=== PATIENT | male | born 1985 | race Caucasian/White ===

== ENCOUNTER 2017-01-06 09:50 | Emergency (ER) | payer BC, OTHER ==
[~2017-01-06] VITALS: Ht 172.7 cm; Wt 77.1 kg
[2017-01-06 10:23] LABS: *BILIRUBIN,URIN NEGATIVE (NEGATIVE); *BLOOD, URINE NEGATIVE (NEGATIVE); *CLARITY,URINE CLEAR (CLEAR); *COLOR,URINE YELLOW (YELLOW); *KETONES,URINE NEGATIVE (NEGATIVE); *PROTEIN,URINE NEGATIVE (NEGATIVE); *UROBILINOGEN,URINE 0.2 E.U./dl (NORMAL); LEUKOCYTE ESTERASE ,URINE NEGATIVE (NEGATIVE); NITRITE, URINE NEGATIVE (NEGATIVE); UGLUCOSE NEGATIVE (NEGATIVE)
[2017-01-06 10:36] LABS: BACTERIA,URINE FEW /HPF (NONE SEEN); RBC,URINE NONE SEEN /HPF (0-3); SQUAMOUS EPITHELIAL CELL,UR NONE SEEN /HPF (NONE SEEN); WBC,URINE 0-3 /HPF (0-3)
[2017-01-06 10:42] LABS: BASOPHILS % (AUTO) 0.9 % (0.0-2.0); EOSINOPHILS # (AUTO) 0.3 K/uL (0.0-0.7); EOSINOPHILS % (AUTO) 5.8 % (0.0-7.0); HEMATOCRIT 41.1 % (40-50); HEMOGLOBIN 14.6 G/DL (14.0-18.0); LYMPHOCYTES % (AUTO) 38.2 % (20.5-51.5); MEAN CORPUSCULAR HEMOGLOBIN 29.5 UUG (27.0-31.0); MEAN CORPUSCULAR HGB CONC 35 g/dL (32.0-37.0); MEAN CORPUSCULAR VOLUME 83.4 FL (82.0-92.0); MONOCYTES # (AUTO) 0.4 K/UL (0.1-1.30); MONOCYTES % (AUTO) 7.8 % (0.0-11.0); NEUTROPHILS # (AUTO) 2.6 K/UL (1.8-8.9); NEUTROPHILS % (AUTO) 47.3 % (38.5-71.5); PLATELET COUNT (AUTO) 239 K/UL (150-450); RED BLOOD CELL COUNT(AUTO) 4.93 MIL/UL (4.7-6.1); RED CELL DISTRIBUTION WIDTH 11.9 % (11.5-14.5); WHITE BLOOD COUNT (AUTO) 5.3 K/UL (4.0-11.2)
[2017-01-06 10:43] LABS: CALCIUM 9.3 mg/dL (8.5-10.1); CREATININE 1.2 mg/dL (0.6-1.3); POTASSIUM 4.2 mmol/L (3.5-5.1)
[2017-01-06 11:02] LABS: ALBUMIN 4.5 g/dL (3.4-5.0); BILIRUBIN,DIRECT 0.1 mg/dL (0.0-0.2); BILIRUBIN,TOTAL 0.5 mg/dL (0.2-1.0); TOTAL PROTEIN, SERUM 8.2 g/dL (6.4-8.2)
[2017-01-06] MEDS: MAG HYDROX/AL HYDROX/SIMETH 30 ML LIQUID UDC PO ONE (11:02)
[2017-01-06] MEDS: DICYCLOMINE HCL 10 MG/5 ML UDC LIQ PO ONE (11:02)
[2017-01-06] MEDS ORDERED: MAG HYDROX/AL HYDROX/SIMETH 30 ML LIQUID UDC ONE (11:08)
[2017-01-06] MEDS ORDERED: DICYCLOMINE HCL 10 MG/5 ML UDC LIQ ONE ×2 (11:09)
--- NOTE | 2017-01-06 11:11 | NUR ---
mse completed, meds administered, pt d/c'd with copy of ct results, aci/rx x1. pt ambulated w/o diff/took all belongings.
[2017-01-06 11:13] VITALS: BP 122/72
== END 2017-01-06 11:14 | disposition home or self-care (01) ==
LOC: ER 09:50
DX: K21.9 Gastro-esophageal reflux disease without esophagitis (principal)
CPT/HCPCS: 36415; 83690; 85025; A4663

== ENCOUNTER 2017-12-07 15:33 | Emergency (ER) | payer BC, OTHER ==
[~2017-12-07] VITALS: Ht 170.2 cm; Wt 73.5 kg
--- NOTE | 2017-12-07 16:10 | NUR ---
PATIENT WAS SEEN BY MD. ARECHIGA AND FOLLOW UP INSTRUCTIONS GIVEN AND EXPLAINED TO PATIENT WHO STATES SHE UNDERSTANDS ALL INSTRUCTIONS.
== END 2017-12-07 16:21 | disposition home or self-care (01) ==
LOC: ER 15:34
DX: S90.32XA Contusion of left foot, initial encounter (principal); X58.XXXA Exposure to other specified factors, initial encounter; Y93.89 Activity, other specified; Y92.89 Other specified places as the place of occurrence of the external cause; Y99.8 Other external cause status
CPT/HCPCS: 73630; A4663

== ENCOUNTER 2020-01-02 15:17 | Emergency (ER) | payer OTHER ==
[~2020-01-02] VITALS: Ht 170.2 cm; Wt 72.1 kg
--- NOTE | 2020-01-02 15:34 | NUR ---
Patient discharged to home in stable condition. Written and verbal after care instructions given. Patient verbalizes understanding of instructions. Stressed follow up or return to ER for worsening s/s.
== END 2020-01-02 15:36 | disposition home or self-care (01) ==
LOC: ER 15:19
DX: J06.9 Acute upper respiratory infection, unspecified (principal); Z20.828 Contact with and (suspected) exposure to other viral communicable diseases
CPT/HCPCS: 99283; C9803; U0003; A4663

== ENCOUNTER 2020-02-28 15:46 | Emergency (ER) | payer OTHER ==
[~2020-02-28] VITALS: Ht 170.2 cm; Wt 72.6 kg
== END 2020-02-28 16:15 | disposition home or self-care (01) ==
LOC: ER 15:46
DX: R05 Cough (principal); R50.9 Fever, unspecified; J02.9 Acute pharyngitis, unspecified; Z20.828 Contact with and (suspected) exposure to other viral communicable diseases
CPT/HCPCS: 99283; U0003; A4663

== ENCOUNTER 2021-02-25 14:32 | Emergency (ER) | payer BC, OTHER ==
[~2021-02-25] VITALS: Ht 170.2 cm; Wt 76.2 kg
--- NOTE | 2021-02-25 15:05 | NUR ---
at bedside for assessment
[2021-02-25] MEDS ORDERED: ONDANSETRON 4 MG/2 ML VIAL IV ONE (15:15)
[2021-02-25] MEDS ORDERED: IV NORMAL SALINE 1000 ML BAG IV ONE (15:15)
[2021-02-25] MEDS ORDERED: ONDANSETRON 4 MG/2 ML VIAL ONE (15:25)
--- NOTE | 2021-02-25 15:25 | NUR ---
Ultrasond noted atr bedside for US gallbladder
[2021-02-25 15:51] LABS: POTASSIUM 3.8 mmol/L (3.5-5.1)
[2021-02-25 15:57] LABS: BILIRUBIN,DIRECT 0.1 mg/dL (0.0-0.2); BILIRUBIN,TOTAL 0.4 mg/dL (0.2-1.0); TOTAL PROTEIN, SERUM 7.4 g/dL (6.4-8.2)
[2021-02-25] MEDS ORDERED: LIDOCAINE VISCUS 2% 15 ML UDC MM ONE (16:45)
[2021-02-25] MEDS ORDERED: MAG HYDROX/AL HYDROX/SIMETH 30 ML LIQUID UDC PO ONE (16:45)
[2021-02-25] MEDS ORDERED: FAMOTIDINE. 20 MG/2 ML VIAL IV ONE ×2 (16:45→17:00)
[2021-02-25] MEDS ORDERED: FAMO-132 PO (16:49)
[2021-02-25] MEDS ORDERED: ONDA4TAB5 PO (16:49)
[2021-02-25] MEDS ORDERED: LIDOCAINE VISCUS 2% 15 ML UDC ONE (17:00)
[2021-02-25] MEDS ORDERED: MAG HYDROX/AL HYDROX/SIMETH 30 ML LIQUID UDC ONE (17:00)
--- NOTE | 2021-02-25 17:12 | NUR ---
Patient discharged to home in stable condition. no signs of acute distress noted, took belongings. Written and verbal after care instructions given. Patient verbalizes understanding of instructions. Stressed follow up or return to ER for worsening s/s.
[2021-02-25 17:18] VITALS: BP 124/71
== END 2021-02-25 17:10 | disposition home or self-care (01) ==
LOC: ER 14:32
DX: R10.13 Epigastric pain (principal); K21.9 Gastro-esophageal reflux disease without esophagitis
CPT/HCPCS: 36415; 71045; 76705; 80048; 80076; 83690; 96361; 96374; 96375; 99284; J2405; J3490; A4663; J7030

== ENCOUNTER 2022-09-23 16:17 | Emergency (ER) | payer BC, OTHER ==
[~2022-09-23] VITALS: Ht 170.2 cm; Wt 77.1 kg
[~2022-09-23 16:17] MED LIST: FAMO-132 PO; ONDA4TAB5 PO
[2022-09-23 17:17] LABS: HEMATOCRIT 40.4 % (36.7-47.1); MEAN CORPUSCULAR HEMOGLOBIN 28.9 uug (23.8-33.4); MEAN CORPUSCULAR VOLUME 86.7 fL (73.0-96.2); PLATELET COUNT (AUTO) 288 K/uL (152-348)
[2022-09-23 17:48] LABS: THYROID STIMULATING HORMONE 0.881 mIU/mL (0.358-3.740)
[2022-09-23 18:00] LABS: CREATININE 1.3 mg/dL (0.6-1.3); POTASSIUM 3.6 mmol/L (3.5-5.1)
--- NOTE | 2022-09-23 18:03 | NUR ---
Pt was seen and discharged by .
[2022-09-23 18:05] LABS: BILIRUBIN,TOTAL 0.4 mg/dL (0.2-1.0); TOTAL PROTEIN, SERUM 8.1 g/dL (6.4-8.2)
== END 2022-09-23 18:31 | disposition home or self-care (01) ==
LOC: ER 16:17
DX: Z00.00 Encounter for general adult medical examination without abnormal findings (principal); K21.9 Gastro-esophageal reflux disease without esophagitis
CPT/HCPCS: 36415; 84443; 85025; A4663

== ENCOUNTER 2022-11-25 12:42 | Outpatient (CLI) | payer BC, OTHER ==
[2022-11-25 13:15] LABS: *BILIRUBIN,URIN NEGATIVE (NEGATIVE); *BLOOD, URINE NEGATIVE (NEGATIVE); *CLARITY,URINE CLEAR (CLEAR); *COLOR,URINE YELLOW (YELLOW); *KETONES,URINE NEGATIVE (NEGATIVE); *UROBILINOGEN,URINE 0.2 E.U./dl (NORMAL); LEUKOCYTE ESTERASE ,URINE NEGATIVE (NEGATIVE); NITRITE, URINE NEGATIVE (NEGATIVE); UGLUCOSE NEGATIVE (NEGATIVE)
[2022-11-25 13:25] LABS: HEMATOCRIT 40.3 % (36.7-47.1); MEAN CORPUSCULAR HEMOGLOBIN 28.3 uug (23.8-33.4); MEAN CORPUSCULAR VOLUME 85.7 fL (73.0-96.2); PLATELET COUNT (AUTO) 284 K/uL (152-348)
[2022-11-25 13:54] LABS: BILIRUBIN,TOTAL 0.3 mg/dL (0.2-1.0); CREATININE 1.1 mg/dL (0.6-1.3)
[2022-11-25 14:25] LABS: THYROID STIMULATING HORMONE 1.022 mIU/mL (0.358-3.740)
[2022-11-26 08:06] LABS: *TESTOSTERONE, SERUM 349 ng/dL (264-916)
== END 2022-11-25 23:59 | disposition home or self-care (01) ==
LOC: LAB 12:42
PROVIDERS: ATTEND Legal Medicine
DX: Z00.00 Encounter for general adult medical examination without abnormal findings (principal); E78.00 Pure hypercholesterolemia, unspecified; E11.9 Type 2 diabetes mellitus without complications; E55.9 Vitamin D deficiency, unspecified; R53.1 Weakness; E03.9 Hypothyroidism, unspecified; D64.9 Anemia, unspecified; K21.9 Gastro-esophageal reflux disease without esophagitis; R10.9 Unspecified abdominal pain
CPT/HCPCS: 36415; 76770; 82306; 82746; 83550; 83690; 84402; 84403; 84443; 85025

== ENCOUNTER 2023-08-15 09:45 | Day surgery (SDC) | payer BC, OTHER ==
[2023-08-15] MEDS ORDERED: PROPOFOL 200 MG/20 ML BOTTLE ONE (12:13)
[2023-08-15 13:53] VITALS: TEMP 98.1
== END 2023-08-15 13:53 | disposition home or self-care (01) ==
LOC: DS 09:45
PROVIDERS: ATTEND Internal Medicine Gastroenterology
DX: K21.9 Gastro-esophageal reflux disease without esophagitis (principal); K29.50 Unspecified chronic gastritis without bleeding; B96.81 Helicobacter pylori [H. pylori] as the cause of diseases classified elsewhere; Z87.891 Personal history of nicotine dependence; Z79.899 Other long term (current) drug therapy; Z98.890 Other specified postprocedural states
CPT/HCPCS: 43239; J7120; A4663; J3490

== ENCOUNTER 2023-10-15 10:21 | Emergency (ER) | payer BC, OTHER ==
[~2023-10-15] VITALS: Ht 170.2 cm; Wt 80.7 kg
[2023-10-15] MEDS: IPRATROPIUM BROMIDE 0.5 MG/2.5 ML NEBU NEB ONE (11:09)
[2023-10-15 11:10] VITALS: O2SAT 97
[2023-10-15] MEDS: ALBUTEROL SULFATE 2.5 MG/3 ML NEBU NEB ONE (11:10)
[2023-10-15] MEDS ORDERED: IPRATROPIUM BROMIDE 0.5 MG/2.5 ML NEBU ONE (11:11)
[2023-10-15] MEDS ORDERED: ALBUTEROL SULFATE 2.5 MG/3 ML NEBU ONE (11:11)
[2023-10-15 11:25] VITALS: O2SAT 100
[2023-10-15] MEDS ORDERED: predniSONE 50 MG TABLET ONE (11:44)
[2023-10-15] MEDS: predniSONE 50 MG TABLET PO ONE (11:47)
[2023-10-15] MEDS ORDERED: AZIT500T PO (11:53)
[2023-10-15] MEDS ORDERED: PRED50TA PO (11:53)
[2023-10-15] MEDS ORDERED: ALBU8.5H8 INH (11:53)
== END 2023-10-15 12:03 | disposition home or self-care (01) ==
LOC: ER 10:26
DX: J18.9 Pneumonia, unspecified organism (principal); J45.909 Unspecified asthma, uncomplicated; K21.9 Gastro-esophageal reflux disease without esophagitis; Z79.899 Other long term (current) drug therapy
CPT/HCPCS: 99283; 71045; 94640; J7512; 94760; A4606; A4663; J3590

== ENCOUNTER 2024-10-03 13:04 | Emergency (ER) | payer BC, OTHER ==
[~2024-10-03] VITALS: Ht 170.2 cm; Wt 80.7 kg
[~2024-10-03 13:04] MED LIST changes: +ALBU8.5H8 INH; +AZIT500T PO; +PRED50TA PO
[2024-10-03] MEDS ORDERED: predniSONE 50 MG TABLET ONE (13:32)
[2024-10-03] MEDS ORDERED: predniSONE 10 MG TABLET ONE (13:32)
[2024-10-03] MEDS: predniSONE 10 MG TABLET PO ONE (13:34)
[2024-10-03] MEDS: ALBUTEROL SULFATE 2.5 MG/3 ML NEBU NEB ONE (13:36)
[2024-10-03] MEDS ORDERED: ALBUTEROL SULFATE 2.5 MG/3 ML NEBU ONE (13:37)
[2024-10-03 13:38] VITALS: O2SAT 97
[2024-10-03 14:35] VITALS: O2SAT 99
[2024-10-03 16:27] VITALS: TEMP 98; O2SAT 99
== END 2024-10-03 16:27 | disposition home or self-care (01) ==
LOC: ER 13:04
DX: J45.901 Unspecified asthma with (acute) exacerbation (principal); J44.1 Chronic obstructive pulmonary disease with (acute) exacerbation; K21.9 Gastro-esophageal reflux disease without esophagitis; Z79.52 Long term (current) use of systemic steroids; Z88.7 Allergy status to serum and vaccine
CPT/HCPCS: 99285; 71045; 94644; 93005; J7512 ×2; 94760; A4606; A4663

== ENCOUNTER 2025-04-18 12:44 | Outpatient (CLI) | payer BC, OTHER ==
[2025-04-23 18:31] LABS: IMMUNOGLOBULIN E, TOTAL 392 IU/mL (6-495)
== END 2025-04-18 23:59 | disposition home or self-care (01) ==
LOC: LAB 12:44
PROVIDERS: ATTEND Internal Medicine Allergy & Immunology
DX: J30.9 Allergic rhinitis, unspecified (principal); J45.20 Mild intermittent asthma, uncomplicated
CPT/HCPCS: 36415; 82785; 85651

== ENCOUNTER 2025-08-13 15:42 | Emergency (ER) | payer BC, OTHER ==
[~2025-08-13] VITALS: Ht 170.2 cm; Wt 84.8 kg
[2025-08-13 15:46] VITALS: BP 150/95
[2025-08-13] MEDS ORDERED: IBUPROFEN 600 MG TABLET ONE (16:29)
[2025-08-13] MEDS ORDERED: LIDOCAINE 5% PATCH TD ONE (16:29)
[2025-08-13] MEDS: LIDOCAINE 5% PATCH TD ONE (16:31)
[2025-08-13] MEDS: IBUPROFEN 600 MG TABLET PO ONE (16:31)
[2025-08-13] MEDS ORDERED: CYCL5TAB4 PO (17:03)
[2025-08-13] MEDS ORDERED: LIDO700A30 TP (17:03)
[2025-08-13] MEDS ORDERED: METH4TAB3 PO (17:03)
[2025-08-13 17:14] VITALS: BP 144/80; O2SAT 97
== END 2025-08-13 17:14 | disposition home or self-care (01) ==
LOC: ER 15:46
DX: S39.012A Strain of muscle, fascia and tendon of lower back, initial encounter (principal); S80.02XA Contusion of left knee, initial encounter; J45.909 Unspecified asthma, uncomplicated; Z79.52 Long term (current) use of systemic steroids; Z88.7 Allergy status to serum and vaccine; X58.XXXA Exposure to other specified factors, initial encounter; Y93.89 Activity, other specified; Y92.89 Other specified places as the place of occurrence of the external cause; Y99.9 Unspecified external cause status
CPT/HCPCS: 72110; A4606; A4663